=== PATIENT | female | born 1955 | race Hispanic/Latino ===

== ENCOUNTER 2018-06-03 14:51 | Outpatient (CLI) | payer BC, OTHER | END 2018-06-03 14:52 | disposition home or self-care (01) | LOC: LABHHL 14:51 | PROVIDERS: ATTEND Specialist | DX: C50.911 Malignant neoplasm of unspecified site of right female breast (principal) | CPT/HCPCS: 88305; 88341; 88342; 88361 ==

== ENCOUNTER 2018-06-17 12:35 | Outpatient (CLI) | payer BC ==
--- NOTE | 2018-06-18 13:31 | Magnetic Resonance Report ---
BILATERAL BREAST MRI WITHOUT AND WITH CONTRAST: 06/17/18 12:35:00 CLINICAL: Newly diagnosed right breast cancer. Status post right ultrasound guided needle biopsy 06/03/18 with pathologic diagnosis of invasive carcinoma NOS and Arianna combined histologic grade II/III. COMPARISON:05/18/18 and 06/03/18 mammograms. TECHNIQUE: Axial 1.0-mm T1 without, axial high resolution 2.0-mm T2 and axial 1.0-mm dynamic Vibrant high-resolution postcontrast T1 fat saturation sequences on a 1.5 Shawna magnet. The examination was performed with an 8 channel dedicated [place] breast coil. Post processing with CAD and subtraction was performed on an [employer] DSP workstation. 17.0 cc of Multihance was injected without incident for the contrast portion of the exam. Consent was obtained prior to the administration of the contrast. FINDINGS: Right: Marked background parenchymal enhancement. The known cancer is an irregular enhancing mass at 1 o'clock 16.4 cm from the nipple measuring 9.0 x 8.8 x 6.7 mm. It demonstrates heterogeneous enhancement with mixed kinetics, 220% peak enhancement, 24% type I persistent, 42% type II plateau and 34% type III washout waveforms. A hydro-John biopsy clip is identified adjacent to the mass. No other mass or suspicious enhancement of the right breast. No suspicious right axillary or right internal mammary lymph nodes. Left: Marked background parenchymal enhancement. No mass or suspicious enhancement. No suspicious left axillary or left internal mammary lymph nodes. IMPRESSION: A 9 mm known right breast cancer at 1 o'clock 15.4 cm from the nipple. No other suspicious lesion of either breast. No suspicious lymph nodes. RIGHT BI-RADS -- LEFT BI-RADS --
== END 2018-06-17 12:36 | disposition home or self-care (01) ==
LOC: SPVIMAG 12:35
PROVIDERS: ATTEND Surgery
DX: C50.411 Malignant neoplasm of upper-outer quadrant of right female breast (principal)
CPT/HCPCS: A9577; C8908; 77059

== ENCOUNTER 2018-07-20 06:02 | Day surgery (SDC) | payer BC ==
[2018-07-20] MEDS ORDERED: ANCEF/STERILE WATER 2 GM/20 ML IV NR (07:00)
[2018-07-20] MEDS ORDERED: XYLOCAINE 1% 20 mL ONE ×2 (07:15→07:31)
[2018-07-20] MEDS ORDERED: MARCAINE-EPI 0.25%-1:200,000 INFILTRATI ONE (07:31)
--- NOTE | 2018-07-20 07:32 | Anesthesia Consultation ---
Anesthesia Consult and Med Hx Date of service: 07/20/18 - Airway Anesthetic Teeth Evaluation: Good ROM Head & Neck: Adequate Mental/Hyoid Distance: Adequate Mallampati Class: Class II Intubation Access Assessment: Good - Pulmonary Exam CTA: Yes - Cardiac Exam Cardiac Exam: No Murmur - Pre-Operative Health Status ASA Pre-Surgery Classification: ASA2 Proposed Anesthetic Plan: General - Central Nervous System Hx Psychiatric Problems: No - Endocrine Hx Hypothyroidism: Yes - Other Systems Hx Alcohol Use: Yes (OCCAS) Hx Substance Use: No Hx Cancer: Yes
--- NOTE | 2018-07-20 07:33 | Anesthesia Day of Surgery ---
Anesthesia Day of Surgery - Day of Surgery Patient Examined: Yes Patient H&P Reviewed: Yes Patient is NPO: Yes
[2018-07-20] MEDS ORDERED: MARCAINE 0.25% INFILTRATI ONE ×2 (07:40→09:01)
[2018-07-20] MEDS ORDERED: VERSED IV NR (08:00)
[2018-07-20] MEDS ORDERED: XYLOCAINE 1% 20 mL INFILTRATI NR (08:00)
[2018-07-20] MEDS ORDERED: LACTATED RINGERS 1,000 ML IV SCH (08:00)
[2018-07-20] MEDS ORDERED: PEPCID PO NR (08:00)
[2018-07-20] MEDS ORDERED: XYLOCAINE MPF 2% ONE (08:04)
[2018-07-20] MEDS ORDERED: SUBLIMAZE ONE (08:04)
[2018-07-20] MEDS ORDERED: DIPRIVAN 10 MG/ML IV ONE ×2 (08:05→08:50)
[2018-07-20] MEDS ORDERED: XYLOCAINE 1% 20 mL INFILTRATI ONE (09:01)
[2018-07-20] MEDS ORDERED: WATER FOR IRRIG STERILE IR ONE (09:01)
--- NOTE | 2018-07-20 09:33 | Ultrasound Report ---
ULTRASOUND GUIDED NEEDLE LOCALIZATION RIGHT BREAST: 07/20/18 CLINICAL: A 1 cm right breast cancer at 1 o'clock 16 cm from the nipple. The lesion has only been visible on the MLO and lateral mammographic views. FINDINGS: Ultrasound demonstrated an irregular solid hypoechoic shadowing mass at 1 o'clock approximately 16 cm from the nipple. Using ultrasound guidance and 3 cc of 1% lidocaine for local anesthesia, a 5 cm Roman needle/hookwire was placed through the lesion. The needle was removed and a final image demonstrated the wire passing through the lesion at the pectoral muscle. The patient tolerated seizure well and there were no apparent palpitations. IMPRESSION: Uncomplicated ultrasound-guided wire placement right breast.
--- NOTE | 2018-07-20 10:50 | Short Stay Summary ---
Short Stay Documentation Date of service: 07/20/18 - History H&P: obtained from office - Allergies and Medications Current Medications: Allergies No Known Allergies Allergy (Verified 07/14/18 15:43) Home Medications Medication Instructions Recorded Confirmed Last Taken Type Levothyroxine Sodium [Synthroid] 112 mcg PO QAM 07/14/18 07/20/18 07/20/18 04: 00 History Pravastatin [Pravachol] 20 mg PO QHS 07/14/18 07/20/18 07/19/18 21:00 History HYDROcodone/APAP 5-325 [[place] 1 each PO Q6HR PRN #30 tablet 07/20/18 Unknown Rx 5/325] Active Medications Cefazolin Sodium (Ancef/Sterile Water 2 Gm/20 Ml) 2 gm IV PREOP NR Stop: 07/20/18 20:00 Famotidine (Pepcid) 20 mg PO PREOP NR Stop: 07/20/18 16:00 Last Admin: 07/20/18 07:32 Dose: 20 mg Lactated Ringer's (Lactated Ringers) 1,000 mls @ 75 mls/hr IV DIRECT ZOË Last Admin: 07/20/18 07:33 Dose: 75 mls/hr Lidocaine (Xylocaine 1% 20 Ml) 20 ml INFILTRATI ONCE NR Stop: 07/20/18 15:00 Midazolam HCl (Versed) 2 mg IV PREOP NR Stop: 07/20/18 23:59 Last Admin: 07/20/18 08:10 Dose: 2 mg - Brief post op/procedure progress note Date of procedure: 07/20/18 Pre-op diagnosis: Right breast cancer of the upper inner quadrant Post-op diagnosis: same Procedure: Right needle localization partial mastectomy with SLNB Anesthesia: MAC Findings: Right radiopgraph specimen with clip and wire present; 1 SLN Surgeon: MOLLY MOTLEY Estimated blood loss: minimal Pathology: list (right partial mastectomy, 1 SLN) Specimen disposition: to lab Condition: stable - Disposition Condition at discharge: Good Disposition: DC-01 TO HOME OR SELFCARE Short Stay Discharge Plan Activity: other (no heavy lifting) Diet: regular Follow up with: SAROJ GERARD MD [Primary Care Provider] - 7 Days MOLLY MOTLEY MD [Staff Physician] - 7 Days Prescriptions: HYDROcodone/APAP 5-325 [[place] 5/325] 1 each PO Q6HR PRN #30 tablet PRN Reason: Pain
--- NOTE | 2018-07-20 10:57 | Operative Report ---
Operative Report Operative Report: July 20, 2018 Preoperative diagnosis: Right breast cancer of the upper inner quadrant Postoperative diagnosis: Same Procedure: Right needle localization partial mastectomy of the upper inner quadrant and SLNB Surgeon: Sayda Ledbetter MD Anesthesia: General Findings: Right wire and clip present within radiograph specimen; x 1 SLN Complications: None EBL: Minimal Disposition: PACU in good condition Indications for operative procedure: This is a 63 year old lady with newly diagnosed right breast cancer of the upper inner quadrant, Stage I [id number] ER/ [facility] positive. Recommendations are to proceed with breast conservation. She understands the role of adjuvant radiation therapy and Oncotype DX will be obtained by medical oncology. She wished to proceed with the above procedure. Procedure in detail: The patient was taken to radiology for wire placement for localization known area of cancer. Patient was then taken to the operating room. Gen. anesthesia was administered. The right nipple was injected with radioisotope. The right breast and axilla were prepped and draped in the normal sterile operative fashion. The wire was identified. Timeout was performed. Gamma probe was inserted into the axilla. The area of hot spot was identified. A right axillary incision was made with a 15 blade knife with dissection taken down to the subcutaneous tissues. The axillary fascia was opened with the Bovie cautery. 1 SLN was identified. All remaining counts were less than 10% of the highest count. Lymph node was sent to pathology for permanent processing. Hemostasis was obtained in the right axillary cavity. Axillary cavity was appropriately irrigated and suctioned. The axillary cavity was anesthetized with 1% lidocaine mixed with quarter percent Marcaine. Hemostasis was noted. Axillary fascia was approximated and closed using interrupted 3-0 Vicryl and the skin brought together and closed using a running 4-0 Monocryl followed by skin affix. Attention was then taken towards the right breast. Lateral breast incision was made with a 15 blade knife and dissection taken down to subcutaneous tissues. First began raising of the inferior/caudal flap with removal of the wire from the skin with dissection take down to the pectoralis muscle, followed by raising of the superior flap,medial flap and lateral flap with all flaps taken down to the pectoralis muscle. The breast area of concern was appropriately removed posteriorly from the pectoralis muscle with the aid of the Bovie cautery. The wire was not encountered. Specimen was marked and then sent to pathology and radiology; radiograph specimen with wire and clip present. Breast cavity was irrigated and hemostasis was obtained. The breast cavity was anesthetized with 1% lidocaine mixed with quarter percent Marcaine. The posterior deep breast tissues were approximated and closed using interrupted 3- 0 Vicryl. The subcutaneous tissues were approximated and closed using interrupted 3-0 Vicryl followed by closing of the skin with a running 4-0 Monocryl and skin affix. The patient tolerated surgery very well and she was awaken from anesthesia without any complication and transported to PACU in good condition.
[2018-07-20] MEDS ORDERED: DILAUDID IV PRN (11:29)
[2018-07-20] MEDS ORDERED: DILAUDID ONE ×2 (11:30→15:22)
[2018-07-20 11:50] VITALS: BP 130/70
--- NOTE | 2018-07-20 13:12 | Mammography Report ---
SPECIMEN RADIOGRAPH RIGHT BREAST: 07/20/18 CLINICAL: Surgical excision of a known cancer.. FINDINGS: The targeted mass with a localizer clip and a hookwire are identified within the specimen. IMPRESSION: Excision of the targeted lesion.
[2018-07-20] MEDS ORDERED: DECADRON ONE (14:37)
[2018-07-20] MEDS ORDERED: ZOFRAN ONE (14:37)
== END 2018-07-20 12:17 | disposition home or self-care (01) ==
LOC: OR 06:02
PROVIDERS: ATTEND Surgery
DX: D05.11 Intraductal carcinoma in situ of right breast (principal); E78.00 Pure hypercholesterolemia, unspecified; E03.9 Hypothyroidism, unspecified; Z98.891 History of uterine scar from previous surgery; Z72.89 Other problems related to lifestyle; Z98.890 Other specified postprocedural states; Z80.8 Family history of malignant neoplasm of other organs or systems
CPT/HCPCS: 19285; 19302; 38500; 76098; 78800; 88307; 88333; 88342; A9541; J0690; J1100; J1170; J2250; J2405; J2704; J3010; J7120; 88341; A4648